=== PATIENT | female | born 1960 | race Caucasian/White ===

== ENCOUNTER 2016-10-15 07:42 | Day surgery (SDC) | payer OTHER, MEDICAID ==
[~2016-10-15] VITALS: Ht 154.9 cm; Wt 109.5 kg
[2016-10-15] VITALS (13 sets, daily range): BP systolic 101–144; BP diastolic 53–87; PULSE 73–96; RESP 16–25; Ht 154.9 cm; Wt 109.5 kg
[2016-10-15] MEDS ORDERED: SOD CHLORIDE 0.9% 1,000 ML IV ONE (10:30)
[2016-10-15] MEDS ORDERED: CEFAZOLIN 2 GM/50 ML (PMX) 50 ML IVPB ONE (10:30)
[2016-10-15] MEDS: D5W-0.45 NACL + KCL 20 MEQ 1,000 ML IV SCH ×2 (11:09→17:25)
[2016-10-15] MEDS ORDERED: ACETAMINOPHEN 1000MG/100ML IV 100 ML IVPB PRN (11:30)
[2016-10-15] MEDS ORDERED: ONDANSETRON 4 MG INJ IV PRN (11:30)
[2016-10-15] MEDS ORDERED: HYD25 PO (11:48)
--- NOTE | 2016-10-15 12:01 | RADRPT ---
PROCEDURE: XR Chest. CLINICAL INDICATION: Breast cancer. TECHNIQUE: Single frontal view of the chest was obtained COMPARISON: No. FINDINGS: The soft tissues are knott. There are degenerative osteophytes in the thoracic spine. The heart i s normal in size. The cardiomediastinal silhouette, pulmonary vasculature and hilar structures are normal. There is a left-sided aorta. The lungs are clear. The costophrenic angles are normal. IMPRESSION: 1. Spondylosis of the thoracic spine with no evidence of active cardiopulmonary disease. 2. No pulmonary or bony metastases are identified. RPTAT:AAJJ Physician Leatha Date Time Electronically viewed and signed by Physician Leatha on 10/15/2016 12:01 ALBERTO/
[2016-10-15 12:11] LABS: ADD SCAN DIFF NO
[2016-10-15 12:18] LABS: BASOPHIL # 0.1 10^3/ul (0.0-0.1); BASOPHILS % 0.6 % (0.0-2.0); EOSINOPHILS # 0.2 10^3/ul (0.0-0.5); EOSINOPHILS % 1.7 % (0.0-7.0); HEMATOCRIT 43.9 % (37.0-47.0); HEMOGLOBIN 14.3 g/dl (12.0-16.0); LYMPHOCYTES % 28.6 % (15.0-51.0); MEAN CORPUSCULAR HEMOGLOBIN 28.9 pg (29.0-33.0); MEAN CORPUSCULAR HGB CONC 32.6 g/dl (32.0-37.0); MEAN CORPUSCULAR VOLUME 88.9 fl (82.0-101.0); MEAN PLATELET VOLUME 10.3 fl (7.4-10.4); MONOCYTE # 0.8 10^3/ul (0.3-0.9); MONOCYTES % 7.3 % (0.0-11.0); NEUTROPHIL # 6.5 10^3/ul (1.6-7.5); NEUTROPHILS % 61.5 % (39.0-77.0); PLATELET COUNT 260 10^3/UL (140-415); RED BLOOD COUNT 4.94 10^6/ul (4.20-5.40); RED CELL DISTRIBUTION WIDTH 13.7 % (11.5-14.5); WHITE BLOOD COUNT 10.5 10^3/ul (4.8-10.8)
[2016-10-15 12:24] LABS: INR 1.02; PROTIME 13.4 Sec (12.2-14.2)
[2016-10-15 12:25] LABS: PARTIAL THROMBOPLASTIN TIME 27.8 Sec (25.0-35.0)
[2016-10-15 12:36] LABS: CALCIUM 9.3 mg/dl (8.4-10.2); CREATININE 0.74 mg/dl (0.44-1.00); POTASSIUM 3.8 mmol/L (3.5-5.1)
[2016-10-15] MEDS ORDERED: ISOSULFAN BLUE 1% 5 ML INJ SC ONE ×2 (14:11→14:45)
[2016-10-15] MEDS ORDERED: SUCCINYLCHOLINE CHLORIDE 100 MG/5 ML SYG IV ONE ×2 (14:26→14:27)
[2016-10-15] MEDS ORDERED: PROPOFOL 20 ML ONE (14:26)
[2016-10-15] MEDS ORDERED: ROCURONIUM 50 MG INJ ONE (14:26)
[2016-10-15] MEDS ORDERED: CEFAZOLIN 1 GM INJ ONE (14:27)
[2016-10-15] MEDS ORDERED: ONDANSETRON 4 MG INJ ONE (14:27)
[2016-10-15] MEDS ORDERED: DEXAMETHASONE 4 MG/ML 1 ML INJ ONE (14:27)
[2016-10-15] MEDS ORDERED: MEPERIDINE 25 MG INJ IV PRN (15:30)
[2016-10-15] MEDS ORDERED: MIDAZOLAM 1 MG/ML 2 ML INJ IV PRN (15:30)
[2016-10-15] MEDS ORDERED: DIPHENHYDRAMINE 50 MG INJ IV PRN (15:30)
[2016-10-15] MEDS ORDERED: HYDROmorphONE (0.2 MG/ML) 10ML SYG IV PRN ×3 (15:30)
[2016-10-15] MEDS ORDERED: ALBUTEROL 0.5% (NEB) 2.5 MG/0.5 ML AMP INH ONE (15:30)
[2016-10-15] MEDS ORDERED: hydrALAzine 20 MG INJ IV PRN (15:30)
[2016-10-15] MEDS ORDERED: EPHEDrine SULFATE 50 MG/5 ML SYG IV PRN (15:30)
[2016-10-15] MEDS ORDERED: FENTAnyl 50 MCG/ML VIAL IV PRN (15:30)
[2016-10-15] MEDS ORDERED: KETOROLAC 30 MG INJ IV ONE (15:30)
[2016-10-15] MEDS ORDERED: hydrALAzine 20 MG INJ ONE (15:37)
[2016-10-15] MEDS ORDERED: GLYCOPYRROLATE 0.4 MG INJ ONE (15:50)
[2016-10-15] MEDS ORDERED: NEOSTIGMINE 3 MG/3 ML SYRINGE ONE (15:50)
[2016-10-15] MEDS: ONDANSETRON 4 MG INJ IV PRN ×2 (16:27→16:55)
[2016-10-15] MEDS ORDERED: METOCLOPRAMIDE 10 MG INJ ONE (16:33)
[2016-10-15] MEDS ORDERED: METOCLOPRAMIDE 10 MG INJ IV PRN (17:00)
[2016-10-15] MEDS: morphine 2 MG INJ IV PRN ×4 (17:24→22:22)
[2016-10-15] MEDS ORDERED: HYDROCODONE/APAP (5/325) TAB PO PRN (17:30)
--- NOTE | 2016-10-15 19:02 | OPR ---
DATE OF OPERATION: 10/15/2016 PREOPERATIVE DIAGNOSIS: Invasive cancer, left breast. POSTOPERATIVE DIAGNOSIS: Invasive cancer, left breast. OPERATION PERFORMED: Needle-directed left partial mastectomy with axillary dissection utilizing sen tinel lymph node technique. ANESTHESIA: General. ANESTHESIOLOGIST: Dr. Gutierrez. SURGEON: George Potts MD COURT SECURITY OFFICER: Santiago Bryant MD INDICATIONS FOR PROCEDURE: The patient is a 55-year-old female who underwent surveillance mammograp hy and was found to have a suspicious lesion in her left breast. Subsequent core biopsy revealed an invasive cancer. She was counseled as to the risks versus benefits of surgery. She consented and was scheduled for surgery. DESCRIPTION OF PROCEDURE: On the morning of surgery, the patient presented to [facility] where she underwent localization of the lesion performed by attending radiologis t, Dr. Madrigal ____. Subsequently, she was brought to the operating theater, placed under general an esthesia. The left breast and axillary regions were prepped and draped in the usual sterile fashion . Approximately 4 mL of 1% Lymphazurin blue dye were then injected peritumorally and the breast wa s gently massaged for approximately 12 minutes. Subsequently, a 3 to 4 cm incision was made in the left axillary hairline. Subcutaneous tissue was dissected with cautery down through the clavipector al fascia. A dye-stained lymphatic was identified and traced to a sentinel node. There was additio nal gumaro tissue in this area. These nodes were meticulously resected with the LigaSure device. In traoperative analysis did not reveal evidence of metastatic disease. Therefore, the wound was irrig ated. Minimal bleeding was controlled with cautery, and the skin was reapproximated with a 4-0 Vicr yl suture in subcuticular fashion. Attention was then directed to performing the partial mastectomy. A curvilinear incision was made i n the upper outer quadrant of the left breast in the region of the previously placed localization wi re. Wide circumferential dissection of the tissue associated with the wire then took place. The sp ecimen was elevated, transected, oriented, and sent for radiographic confirmation of capture. Captu re was confirmed. The specimen was then sent for permanent pathologic analysis. The wound was irri gated. Minimal bleeding was controlled with cautery, and the skin was reapproximated with a 4-0 Fazal ryl suture in subcuticular fashion. Dermabond was applied to both wounds. The patient tolerated th e procedure well. The estimated blood loss was 20 mL. There were no complications and the patient was transported in stable condition to the recovery room. Dictated By: GEORGE WILLAMS/JUVENAL Conf#: [id number] DID#: [id number]
[2016-10-16 00:23] VITALS: BP 110/52; RESP 16
[2016-10-16] MEDS: morphine 2 MG INJ IV PRN ×6 (00:31→11:08)
[2016-10-16] MEDS: D5W-0.45 NACL + KCL 20 MEQ 1,000 ML IV SCH ×3 (02:07→11:09)
[2016-10-16] MEDS ORDERED: DIPHENHYDRAMINE 50 MG CAP PO PRN (03:00)
[2016-10-16 05:41] VITALS: BP 96/55; PULSE 77; RESP 18
[2016-10-16 08:53] VITALS: BP 103/57; RESP 18
[2016-10-16] MEDS: HYDROCHLOROTHIAZIDE 25 MG TAB PO SCH ×2 (09:00→12:38)
--- NOTE | 2016-10-16 10:35 | HP ---
DATE OF ADMISSION: 10/15/2016 CHIEF COMPLAINT AND HISTORY OF PRESENT ILLNESS: The patient is a 55-year-old female with history of hypertension who was noted to have abnormal mammogram. She was found to have suspicious disease in the left breast. Subsequent biopsy revealed invasive cancer. The patient was seen by Dr. Delroy miller d underwent needle-directed left partial mastectomy and sentinel lymph node biopsy. The patient rothman s have significant postoperative pain and is being admitted for further evaluation and management. The patient also had postoperative headache for which she will receive IV Tylenol. No vomiting. Th e patient does have mild nausea. No recent abdominal pain. The patient has had multiple surgeries in the past, according to her she has had a total of 8 abdominal surgeries. The patient denied any previous history of angina. No history of congestive heart failure. No history of CVA in the past. No history of acute skin rash or any acute joint swelling or pain. REVIEW OF SYSTEMS: The rest of review of systems was unremarkable. PAST MEDICAL HISTORY: As stated above. The patient also has a history of diverticulitis. PAST SURGICAL HISTORY: The patient is status post hysterectomy, cholecystectomy and multiple abdomi nal surgeries for diverticulitis and also history of colostomy, which was subsequently reversed. MEDICATIONS: The patient is on hydrochlorothiazide 25 mg once a day. ALLERGIES: NONE. SOCIAL HISTORY: The patient smokes marijuana and occasionally also smokes cigarettes. FAMILY HISTORY: The patient's aunt had breast cancer. PHYSICAL EXAMINATION: GENERAL: The patient is conscious, awake, alert, fairly oriented. VITAL SIGNS: Blood pressure 134/87, pulse 73, respirations 20, temperature 98.1, O2 saturation 96%. HEENT: Conjunctivae and lids normal. Oropharynx clear. NECK: Supple. No mass, no thyromegaly. CHEST: Fairly clear. No use of accessory muscles. CARDIOVASCULAR: S1, S2 normal. No murmur. ABDOMEN: Soft, nondistended, nontender. Bowel sounds present. EXTREMITIES: No leg edema. NEUROLOGIC: The patient is awake, alert, fairly oriented with no gross focal deficit. LABORATORY DATA: WBC 10.5, hemoglobin 14.3, platelets 260. Sodium 141, potassium 3.8, BUN 11, crea tinine 0.7. IMPRESSION: 1. Left breast cancer status post partial mastectomy and axillary dissection. 2. Hypertension. 3. History of diverticulitis and also multiple abdominal surgeries as listed above. PLAN: The patient meanwhile will be started on IV Tylenol, [place] and IV morphine for pain control. We will also give IV fluids and we will use SCDs for DVT prophylaxis. Further recommendations will depend on patient's hospital course. Dictated By: EDDIE FRANCES/JUVENAL Conf#: [id number] DID#: [id number]
[2016-10-16] MEDS ORDERED: morphine 2 MG INJ IV PRN (11:30)
[2016-10-16] MEDS ORDERED: HYDROCODONE/APAP (10/325) TAB PO PRN (11:30)
[2016-10-16] MEDS ORDERED: Hydrocodone/Apap (10/325) PO (13:51)
--- NOTE | 2016-10-16 15:49 | RADRPT ---
Vent Rate: 67 bpm RR Interval: 0 msec [place] Interval: 172 msec QRS Duration: 86 msec QT Interval: 416 msec QTC Interval: 439 msec P-R-T [place]: 60 - 76 - 60 degrees Normal sinus rhythm Normal ECG Electronically Signed By: Jalil Barrientos [id number]
== END 2016-10-16 14:40 | disposition home or self-care (01) ==
LOC: SDS 07:42 → MS1 17:15 → SDS 10-16 14:40
PROVIDERS: ATTEND Surgery Surgical Oncology
DX: D05.12 Intraductal carcinoma in situ of left breast (principal); I10 Essential (primary) hypertension; E66.01 Morbid (severe) obesity due to excess calories; Z68.42 Body mass index [BMI] 45.0-49.9, adult; F41.9 Anxiety disorder, unspecified
CPT/HCPCS: 19301; 38500; 38792; 71010; 80048; 85025; 85610; 85730; 88307; 88331; 93005; 94664; J0131; J0330; J0690; J1100; J1885; J2270; J2405; J2710; J2765; J3010; J3480; Q9968; J0360